=== PATIENT | female | born 1940 | race Caucasian/White ===

== ENCOUNTER 2016-04-21 22:09 | Emergency (ER) | payer OTHER ==
--- NOTE | ~2016-04-21 | CT71 ---
[facility] A Service of [facility] RADIOLOGY TEXT RESULTS PATIENT: ОЛЕГ SCHREIBER LOCATION: [facility] : 39 UNIT #: [id number] AGE: [address]: Rito Martin MD SEX: F ORDER DR: [id number] [facility] [address] [place], [place] [address] [id number] E MR#: [id number] #: [id number] NAME: ОЛЕГ SCHREIBER. : 1940 SEX: F STUDY DATE/TIME: 04/21/2016 22:28 UNIT: [facility] ROOM: STUDY DESCRIPTION: CT Head Wo Contrast Attending Physician: Rito Martin Ordering Physician: [facility] Primary Care Physician: Sheri Rajput M.D. MEDICAL IMAGING REPORT This report is preliminary unless electronic signature is present EXAM Noncontrast CT head. DATE: 04/21/2016 HISTORY 75-year-old female who fell 30 minutes prior to arrival. Occipital head injury. No loss of conscious. Pain at the back of the head and neck. Hypertension. Congestive heart failure. Breast cancer with left mastectomy. COMPARISON Noncontrast CT head 08/24/2014. The CT exam was performed with one or more of the following radiation dose reduction techniques: automatic exposure control, adjustment of mA and/or kV according to patient size, and iterative reconstruction. FINDINGS Extensive hypodensities are seen throughout the white matter of the brain which are nonspecific, favored to represent changes of chronic microvascular cease. More chronic focal suspected lacunar infarct extends from the lateral margin of the right lateral ventricle in the right frontal lobe. It is not thought to be significantly changed. No convincing CT evidence of acute or evolving infarct. No acute intracranial hemorrhage, mass lesion, mass or midline shift. Mild generalized parenchymal atrophy within compensatory prominence in the ventricles but similar to prior exam. No displaced calvarial fracture is identified. The major paranasal sinuses and mastoid air cells appear clear. IMPRESSION [facility] A Service of [facility] RADIOLOGY TEXT RESULTS PATIENT: ABDOUL,ОЛЕГ D LOCATION: [facility] : 39 UNIT #: [id number] AGE: [address]: Rito Martin MD SEX: F ORDER DR: 1. Extensive chronic microvascular disease changes and mild generalized parenchymal atrophy appear very similar to 08/24/2014. 2. No acute intracranial findings. Dictated by... Shawna Franz M.D. THIS IS AN ELECTRONICALLY VERIFIED REPORT Shawna Franz M.D. at 04/23/2016 1:52 AM [facility]/rommel TD: 04/22/2016 10:31 JOB #: [id number] MEDICAL IMAGING REPORT COPY
--- NOTE | ~2016-04-21 | CR21 ---
[facility] A Service of [facility] RADIOLOGY TEXT RESULTS PATIENT: ОЛЕГ SCHREIBER LOCATION: [facility] : 39 UNIT #: [id number] AGE: [address]: Rito Martin MD SEX: F ORDER DR: [id number] [facility] [address] [place], [place] [address] [id number] E MR#: [id number] Acc #: [id number] NAME: ОЛЕГ SCHREIBER. : 1940 SEX: F STUDY DATE/TIME: 04/21/2016 21:38 UNIT: [facility] ROOM: STUDY DESCRIPTION: CR Ankle Min 3 Views Rt Attending Physician: Stephan Martin M.D. Ordering Physician: Ed Doctor [id number] [facility] Primary Care Physician: Sheri Rajput M.D. MEDICAL IMAGING REPORT This report is preliminary unless electronic signature is present EXAM Right ankle 3 views HISTORY Fell today, pain and swelling. FINDINGS 3 views of the right ankle demonstrate osteopenia. No visible fracture or dislocation. Arterial vascular clips are noted in the anterior lower leg. On the AP view there is questionable deformity of the lateral distal fibula but this cannot be confirmed on the lateral view and no definitive fracture is seen. There is also absence of soft tissue swelling in this region and therefore underlying fracture considered less likely but not excluded. Correlate with targeted physical exam. Dictated by... Giovanna Camejo M.D. THIS IS AN ELECTRONICALLY VERIFIED REPORT Giovanna Camejo M.D. at 04/22/2016 6:33 PM Jennie TD: 04/22/2016 09:54 JOB #: [id number] MEDICAL IMAGING REPORT COPY
[~2016-04-21 22:09] MED LIST: ASPIRIN PO; COZAAR PO; DARVOCET-N 1001 TAB PO; FISH OIL 1,0001 CAP PO; LASIX PO; PLAVIX PO; SYNTHROID PO; TOPROL XL PO; ZOLOFT PO
[2016-04-21 22:50] LABS: BASOPHIL# 0.1 X10e3 (0-0.3); BASOPHIL% 0.5 % (0-2.5); EOSINOPHIL# 0.1 X10e3 (0-0.7); EOSINOPHIL% 0.5 % (0.0-7.0); HEMATOCRIT 37.8 % (35.0-45.0); HEMOGLOBIN 12.4 gm/dL (12.0-16.0); LYMPHOCYTE# 2.4 X10e3 (1.0-3.5); MEAN CELL VOLUME 94.6 FL (83-96); MEAN CORPUSCULAR HEMOGLOBIN 31.1 PG (28-34); MEAN CORPUSCULAR HGB CONC 32.9 g/dL (30-36); MEAN PLATELET VOLUME 9.2 FL (6.5-11.5); MONOCYTE# 1.4 X10e3 (0-1.0); MONOCYTE% 10.9 % (3.0-12.0); NEUTROPHIL# 8.8 X10e3 (1.5-7.1); NEUTROPHIL% 69.1 % (40-75); PLATELET COUNT 296 X10e3 (140-420); RED BLOOD COUNT 3.99 X10e (3.90-5.30); WHITE BLOOD COUNT 12.8 X10e3 (4.0-10.5)
[2016-04-21 22:51] LABS: DIFF IND NO
[2016-04-21 23:00] LABS: INR 3.9; PARTIAL THROMBOPLASTIN TIME 50.4 SECONDS (23.5-31.3)
[2016-04-21 23:03] LABS: PROTHROMBIN TIME (PATIENT) 43.2 SECONDS (9.6-11.5)
[2016-04-21 23:07] LABS: BLOOD UREA NITROGEN 14 mg/dL (9-23); CALCIUM SERUM 9.7 mg/dL (8.4-10.2); CARBON DIOXIDE 22 mmol/L (22-31); CHLORIDE 100 mmol/L (100-111); CREATININE SERUM 0.8 mg/dL (0.6-1.4); GLOM FILT RATE Estimated ABOVE60 mL/min (>60); GLUCOSE FASTING 106 mg/dL (70-110); POTASSIUM 3.8 mmol/L (3.5-5.1); SODIUM 132 mmol/L (135-145)
== END 2016-04-21 23:59 | disposition home or self-care (01) ==
LOC: CED 22:09
PROVIDERS: Emergency Medicine
DX: S93.401A Sprain of unspecified ligament of right ankle, initial encounter (principal); S00.03XA Contusion of scalp, initial encounter; I50.9 Heart failure, unspecified; I25.10 Atherosclerotic heart disease of native coronary artery without angina pectoris; Z88.0 Allergy status to penicillin; Z88.2 Allergy status to sulfonamides; Z88.7 Allergy status to serum and vaccine; W01.0XXA Fall on same level from slipping, tripping and stumbling without subsequent striking against object, initial encounter; Y92.009 Unspecified place in unspecified non-institutional (private) residence as the place of occurrence of the external cause
CPT/HCPCS: 29405; 70450; 73610; 80048; 85025; 85610; 85730; 99284

== ENCOUNTER → 2016-05-21 | Outpatient (CLI) | payer OTHER ==
--- NOTE | ~2016-05-21 | BD1 ---
[facility] A Service of [facility] RADIOLOGY TEXT RESULTS PATIENT: ОЛЕГ SCHREIBER LOCATION: [facility] : 39 UNIT #: [id number] AGE: [address]: ZO PATTON MD SEX: F ORDER DR: [id number] [facility] [address] [place], [place] [address] [id number] O MR#: [id number] Acc #: [id number] NAME: ОЛЕГ SCHREIBER : 1940 SEX: F STUDY DATE/TIME: 05/21/2016 9:45 UNIT: [facility] ROOM: STUDY DESCRIPTION: BD Dexa Bone Dens 1+ Site Attending Physician: Zo Patton M.D. Referring Physician: Zo Patton M.D. Ordering Physician: Zo Patton M.D. Primary Care Physician: Zo Patton M.D. MEDICAL IMAGING REPORT This report is preliminary unless electronic signature is present EXAM DXA scan, 05/21/2016 HISTORY Status post menopause with no hormone replacement therapy. Osteopenia. Family history of breast carcinoma in mother. Hyperthyroidism. Thyroid medication. Smoking history. FINDINGS Bone mineral density in the lumbar spine from L1-L4 is 0.804 g/cm2 which is 2.2 standard deviations below the mean when compared to the young adult reference population which is characteristic of osteopenia. This is 0.3 standard deviations above the mean when compared to the age-matched population. Bone mineral density in the left femoral neck was 0.546 g/cm2 which is 2.7 standard deviations below the mean when compared to the young adult reference population which is characteristic of osteoporosis. This is 0.6 standard deviations below the mean when compared to the age-matched population. IMPRESSION Bone mineral density in the lumbar spine characteristic of osteopenia and within the left hip characteristic of osteoporosis. Dictated by... Yo Mercado M.D. THIS IS AN ELECTRONICALLY VERIFIED REPORT Yo Mercado M.D. at 05/22/2016 8:07 AM [facility]ides TD: 05/21/2016 13:02 [facility] A Service of [facility] RADIOLOGY TEXT RESULTS PATIENT: ОЛЕГ SCHREIBER LOCATION: [facility] : 39 UNIT #: [id number] AGE: [address]: ZO PATTON MD SEX: F ORDER DR: JOB #: [id number] MEDICAL IMAGING REPORT Page 1 of 1 COPY
== END | disposition home or self-care (01) ==
LOC: CWCC 09:25
DX: Z78.0 Asymptomatic menopausal state (principal); M85.88 Other specified disorders of bone density and structure, other site; M81.0 Age-related osteoporosis without current pathological fracture
CPT/HCPCS: 77080